=== PATIENT | male | born 1995 | race Caucasian/White ===

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

== ENCOUNTER → 2017-03-13 | Outpatient (CLI) | payer OTHER ==
[2017-03-14 05:43] LABS: ESTIMATED AVERAGE GLUCOSE 266 mg/dl; HA1C FLAG Normal (Normal)
== END | disposition home or self-care (01) ==
LOC: C.LAB1850 16:32
PROVIDERS: ATTEND Internal Medicine Endocrinology, Diabetes & Metabolism
DX: E10.9 Type 1 diabetes mellitus without complications (principal); E55.9 Vitamin D deficiency, unspecified

== ENCOUNTER → 2017-09-14 | Outpatient (CLI) | payer OTHER ==
[2017-09-14 12:58] LABS: HEMOGLOBIN A1C 10.7 % (4.5-5.6)
== END | disposition home or self-care (01) ==
LOC: C.LABMFLN 07:30
PROVIDERS: ATTEND Internal Medicine Endocrinology, Diabetes & Metabolism
DX: E03.9 Hypothyroidism, unspecified (principal); E55.9 Vitamin D deficiency, unspecified; E10.65 Type 1 diabetes mellitus with hyperglycemia